=== PATIENT | female | born 2000 | race Caucasian/White ===

== ENCOUNTER → 2023-12-28 16:35 | Outpatient (REF) | payer OTHER, SELFPAY | LOC: HWRAD 16:35 | PROVIDERS: ATTENDING PHYSICIAN Nurse Practitioner Adult Health | DX: M79.641 Pain in right hand (principal) | CPT/HCPCS: 73130 ==

== ENCOUNTER → 2024-04-04 07:00 | Outpatient (REF) | payer OTHER, SELFPAY | LOC: HWRCS 07:00 | PROVIDERS: ATTENDING PHYSICIAN Nurse Practitioner Adult Health | DX: R07.9 Chest pain, unspecified (principal); I51.7 Cardiomegaly | CPT/HCPCS: 93306 ==

== ENCOUNTER 2024-04-11 02:08 | Emergency (ER) | payer OTHER, SELFPAY ==
[2024-04-11 02:14] VITALS: BP 130/86
[2024-04-11 02:36] VITALS: BMI 35.1
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
[2024-04-11 03:03] VITALS: BP 117/74
[2024-04-11 03:18] LABS: % Basophils 0.5 % (0-2); % Eosinophils 2.2 % (0-6); % Immature Granulocytes 0.8 % (0-0.5); % Lymphocytes 27.9 % (20.5-51.1); % Monocytes 7.6 % (1.7-9.3); Absolute Eosinophils 0.2 10^3/uL (0-0.7); Absolute Immature Granulocytes 0.1 10^3/uL (0-0.05); Absolute Lymphocytes 2.2 10^3/uL (1.2-3.4); Absolute Monocytes 0.6 10^3/uL (0.1-0.6); Absolute Neutrophils 4.8 10^3/uL (1.4-6.5); Hematocrit 38.5 % (37.0-47.0); Hemoglobin 13.5 g/dL (12.0-16.0); Mean Corp Hgb Conc. 35.1 g/dL (33.0-37.0); Mean Corpuscular Volume 88.5 fL (81.0-99.0); Mean Platelet Volume 9.3 fL (7.4-10.4); Nucleated Red Blood Cells % 0 %; Platelet Count 295 10^3/uL (130-400); Red Blood Cell Count 4.35 10^6/uL (4.20-5.40); Red Cell Dist. Width 12.5 % (11.5-14.5); White Blood Cell Count 7.8 10^3/uL (4.8-10.8)
[2024-04-11 03:28] LABS: HCG, Serum Qualitative Screen Negative
[2024-04-11 03:40] LABS: NT-proBNP < 20.0 pg/ml; Troponin I < 0.012 ng/ml
[2024-04-11 03:45] LABS: ALT (SGPT) 28 U/L (0-35); AST (SGOT) 32 U/L (14-36); Albumin 4.7 g/dl (3.5-5.0); Alkaline Phosphatase 101 U/L (38-126); Blood Urea Nitrogen 10 mg/dl (7-17); Calcium 9.6 mg/dl (8.4-10.2); Carbon Dioxide 18 mmol/L (22-30); Chloride 110 mmol/L (98-107); D-Dimer 0.29 ug/mlFEU (0.00-0.50); Estimated Creatinine Clearance > 125 ml/min; Glucose 93 mg/dl (70-99); Sodium 145 mmol/L (135-145); Total Bilirubin 0.3 mg/dl (0.2-1.3); Total Protein 7.6 g/dl (6.3-8.2); eGFR > 60.00
[2024-04-11 04:00] VITALS: BP 117/74
[2024-04-11 04:40] VITALS: BP 126/83
[2024-04-11 05:00] VITALS: BP 126/92
[2024-04-11 05:41] VITALS: BP 126/92
== END 2024-04-11 06:20 | disposition home or self-care (01) ==
LOC: EMR 02:08
PROVIDERS: EMERGENCY PHYSICIAN Student in an Organized Health Care Education/Training Program; FAMILY PHYSICIAN Nurse Practitioner Adult Health
DX: R55 Syncope and collapse (principal); I34.0 Nonrheumatic mitral (valve) insufficiency
CPT/HCPCS: 99285; 71046; 80053; 83880; 84484; 84703; 85025; 85379; 93005

== ENCOUNTER → 2024-04-16 07:21 | Outpatient (REF) | payer OTHER, SELFPAY ==
--- NOTE | 2024-04-16 11:00 | EEG.RPT ---
Electroencephalogram Report
Recording
Date of EE04/16/24
Type of EEG: Routine
Length of EEG recordin minutes
Done with Video Recording: Yes
Patient Status: Outpatient
Recording Conditions: Awake, Drowsy and Asleep
Hyperventilation Performed: Yes
Photic Stimulation Performed: Yes
Report
LESS THAN 1 HOUR EEG INTERPRETATION:
Unremarkable EEG for age
CLINICAL CORRELATION:
A normal EEG does not rule out a diagnosis of epilepsy. If clinical suspicion for seizure persists, a prolonged recording may be warranted.
Clinical correlation is advised.
METHODS:
A 21 channel digitized electroencephalogram (EEG) was performed using the 10/20 international system of electrode placement and one-lead of ECG recorded. The FNZ quantitative EEG system was utilized.
ELECTROENCEPHALOGRAPHER IMPRESSION(S):
Quality of study
Good
Background
There was an unremarkable anterior-posterior voltage gradient of alpha frequency.
With eye opening the background activity changed to a low voltage mixture of frequencies.
There were no significant asymmetries of background activity noted.
Sleep
Drowsiness present
Stage 1 present
Stage 2 present
Hyperventilation
No activation
Photic Stimulation
No activation
ECG
Normal sinus rhythm
== END ==
LOC: EEG 07:21
PROVIDERS: ATTENDING PHYSICIAN Nurse Practitioner Adult Health
DX: R55 Syncope and collapse (principal)
CPT/HCPCS: 95816

== ENCOUNTER → 2024-05-29 07:37 | Outpatient (REF) | payer OTHER, SELFPAY | LOC: RCS 07:37 | PROVIDERS: ATTENDING PHYSICIAN Internal Medicine Interventional Cardiology; FAMILY PHYSICIAN Nurse Practitioner Adult Health | DX: R55 Syncope and collapse (principal); R07.89 Other chest pain; R00.2 Palpitations | CPT/HCPCS: 93017 ==

== ENCOUNTER 2024-07-02 10:04 | Day surgery (SDC) | payer OTHER, SELFPAY ==
--- NOTE | 2024-07-02 12:45 | CON.CAR ---
Consultation
Consultation Request
Date/Time Consultation Performed: 07/02/24
Performing Provider: Dr. Scott
Reason for Consultation: H&P for tilt table test
Medical History
-
History of Present Illness:
Patient describes episodes of syncope happening intermittently for almost 2 years. Syncope can happen while seated. Patient describes symptoms ranging from numb feet, nausea, numb hands, heavy head, chest pain and vision changes that can be a sign
that she is going to pass out. Patient can also have these symptoms at times and not pass out. Syncope episodes described as losing consciousness and awakening within seconds. Her last episode of syncope was at [facility], she describes waking up
to her cat jumping on her in bed while she was asleep, she stood up to go to the bathroom, felt heavy and fell back into her bed and awoke 10-15 seconds later and felt fine. Patient has seen Neurology at [facility] and they requested a tilt table test.
PMH:
Syncope
Depression and anxiety
PTSD
Past Medical History
Past Medical History: Other (syncope, PTSD, anxiety, depression, allergies)
Past Surgical History: Orthopedic (ACL 2017, 2020)
Social History
Tobacco: Vaping
Alcohol: Occasional
Drug: None (denies)
Personal: Single
Living: With Family
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
Family History
Family History: Cancer, Hypertension and Other (father with TIA, HTN. mother with HTN)
Allergies / Home Medications
Allergy/AdvReac Type Severity Reaction Status Date / Time
No Known Allergies Allergy Verified 04/11/24 02:14
�Medication �Instructions �Recorded �Confirmed �Type
acetaminophen 325 mg capsule 650 mg PO .Q8H PRN CRAMPS 09/15/20 04/11/24 History
(Tylenol)
Effexor XR 225 mg PO DAILY 04/11/24 07/02/24 History
meloxicam 15 mg tablet 15 mg PO DAILY 07/02/24 07/02/24 History
Review of Systems
-
History Source: Patient
All other systems: Negative unless noted
Physical Exam
Vital Signs
130/78 HR 74 RR 12 spO2 99% RA
GEN: NAD. AAOx3
HEENT: EOMI, MMM
LUNGS: RA. CTA B/L, no wheezes/rales
CV: SR on tele. Reg, S1/S2, no murmur
ABD: soft, BS+, NT, ND
EXT: No clubbing, cyanosis, lesions or edema B/L
NEURO: Gross non-focal
SKIN: Warm, dry and pink. No rash
Impression / Plan
-
PCP: Flor Fowler
Card: Dr. Scott
Neuro: Dr. Bandar [facility]
Impression:
Syncope
Depression and anxiety
PTSD
Plan:
-Patient describes episodes of syncope happening intermittently for almost 2 years. Syncope can happen while seated. Patient describes symptoms ranging from numb feet, nausea, numb hands, heavy head, chest pain and vision changes that can be a sign
that she is going to pass out. Patient can also have these symptoms at times and not pass out. Syncope episodes described as losing consciousness and awakening within seconds. Her last episode of syncope was at [facility], she describes waking up
to her cat jumping on her in bed while she was asleep, she stood up to go to the bathroom, felt heavy and fell back into her bed and awoke 10-15 seconds later and felt fine. Patient has seen Neurology at [facility] and they requested a tilt table test.
-Plan is for tilt table test today.
--- NOTE | 2024-07-02 13:01 | ITS.CL.TT ---
Dispatcher [employer] - Tilt Table
Tilt Table
Procedure Report:
Patient presented to for tilt table testing. Please see separately dictated report for details. Patient had syncope that was not associated with change in BP, HR or rhythm. Patient was d/c'd to home to follow up with her Neurologist at [place].
[id number]
== END 2024-07-02 12:43 | disposition home or self-care (01) ==
LOC: CATH 10:04
PROVIDERS: ATTENDING PHYSICIAN Internal Medicine Interventional Cardiology; FAMILY PHYSICIAN Nurse Practitioner Adult Health
DX: R55 Syncope and collapse (principal); F32.A Depression, unspecified; F41.9 Anxiety disorder, unspecified; F43.10 Post-traumatic stress disorder, unspecified; F17.290 Nicotine dependence, other tobacco product, uncomplicated; Z82.49 Family history of ischemic heart disease and other diseases of the circulatory system
CPT/HCPCS: 93660